=== PATIENT | female | born 1995 | race African-American/Black ===

== ENCOUNTER 2019-03-03 12:34 | Emergency (ER) | payer SELFPAY ==
--- NOTE | 2019-03-03 13:40 | ER Document Report ---
HPI - HPI Patient complains to provider of: Nasal congestion Time Seen by Provider: 03/03/19 13:34 Onset: Other - 3 To 4 days Onset/Duration: Persistent Quality of pain: No pain Pain Level: 1 Context: 23-year-old female with no past medical history presents emergency department with reports of sore throat a couple days ago but that is better. Now she complains of nasal congestion reports she is having trouble tasting. Reports she is hungry but not eating that much. Denies fever vomiting diarrhea. Denies pain with void. Reports she has tried some crug-slf-mkcjsge medications without relief of symptoms. Denies cough. Exacerbated by: Denies Relieved by: Denies Similar symptoms previously: No Recently seen / treated by doctor: No - RESPIRATORY Respiratory: REPORTS: Coughing Past Medical History - General Information source: Patient Last Menstrual Period: depo - Social History Smoking Status: Never Smoker Occupation: None Lives with: Alone Family History: Reviewed & Not Pertinent Patient has suicidal ideation: No Patient has homicidal ideation: No - Medical History Medical History: Negative Surgical Hx: Negative Vertical Provider Document - CONSTITUTIONAL Agree With Documented VS: Yes Exam Limitations: No Limitations General Appearance: WD/WN, No Apparent Distress - Nontoxic looking - INFECTION CONTROL TRAVEL OUTSIDE OF THE [place] IN LAST 30 DAYS: No - HEENT HEENT: Atraumatic, Normal ENT Exam, Normocephalic, PERRLA. negative: Conjuctival Injection, Pharyngeal Erythema, Tympanic Membrane Bulging - NECK Neck: Normal Inspection, Supple. negative: Lymphadenopathy-Left, Lymphadenopathy-Right - RESPIRATORY Respiratory: Breath Sounds Normal, No Respiratory Distress - CARDIOVASCULAR Cardiovascular: Regular Rate, Regular Rhythm - GI/ABDOMEN Gastrointestinal: Abdomen Soft, Abdomen Non-Tender - BACK Back: negative: CVA Tenderness-Right, CVA Tenderness-Left - MUSCULOSKELETAL/EXTREMETIES Musculoskeletal/Extremeties: XIOMY GUTIERREZ - NEURO Level of Consciousness: Awake, Alert, Appropriate Motor/Sensory: No Motor Deficit - DERM Integumentary: Warm, Dry, No Rash Course - Re-evaluation Re-evalutation: 03/03/19 13:45 Patient presents to the emergency department with what appears to be cold symptoms nasal congestion. She was instructed on pushing fluids monitor temperature take zgtv-gxo-btuvlfl decongestant. She was also instructed to return for fever concerns. She verbalized understanding to all instructions. - Vital Signs Vital signs: Temp Pulse Resp BP Pulse Ox 98.0 F 98 16 125/78 98 03/03/19 12:41 03/03/19 12:41 03/03/19 12:41 03/03/19 12:41 03/03/19 12:41 Discharge - Discharge Clinical Impression: Nasal congestion Condition: Stable Disposition: HOME, SELF-CARE Additional Instructions: *You have been evaluated for cold symptoms today, nasal congestion *Increase fluid intake as discussed *Take xaqz-whc-cfukmko decongestant *Monitor your temperature, take Tylenol as indicated *Follow up with a primary care provider within 1 week for recheck *Return to ED for worsening condition, changes, needs Referrals: MAGDI VALADEZ MD [ACTIVE STAFF] - Follow up as needed
[2019-03-03 13:46] VITALS: BP 122/74
== END 2019-03-03 13:38 | disposition home or self-care (01) ==
LOC: ER 12:34
DX: R09.81 Nasal congestion (principal); R06.00 Dyspnea, unspecified; R05 Cough; Z79.3 Long term (current) use of hormonal contraceptives
CPT/HCPCS: 99282

== ENCOUNTER 2019-09-12 14:33 | Emergency (ER) | payer SELFPAY ==
--- NOTE | 2019-09-12 15:25 | ER Document Report ---
ED Medical Screen (RME) - General Chief Complaint: Abdominal Pain Stated Complaint: ABDOMINAL PAIN/BLOATING/INSOMNIA Time Seen by Provider: 09/12/19 15:19 Mode of Arrival: Ambulatory Information source: Patient Notes: HPI; 24-year-old female presents to the emergency room complaining of worsening intermittent abdominal cramping and pain that has been ongoing for several months. Patient states she was seen for last year in [place] with no definite diagnosis. Denies fevers, no nausea, no vomiting. Does complain of bladder cramping after urinating. Not taking any medications for her symptoms. Also complaining of general fatigue and insomnia. PE: Alert and oriented x3. No acute distress noted. Lungs: Clear to auscultation without rales, rhonchi, wheezes. Heart: Regular rate rhythm without murmurs, rubs, gallops. No CVA tenderness noted bilaterally. Unable to do full abdominal exam in triage I have greeted and performed a rapid initial assessment of this patient. A comp rehensive ED assessment and evaluation of the patient, analysis of test results and completion of the medical decision making process will be conducted by additional ED providers. I have specifically instructed the patient or family members with the patient to immediately return to any nursing staff should anything change in the patient's condition or with their chief complaint. TRAVEL OUTSIDE OF THE [place] IN LAST 30 DAYS: No - Related Data Allergies/Adverse Reactions: No Known Allergies Allergy (Verified 09/12/19 15:18) Past Medical History - Social History Chew tobacco use (# tins/day): No Frequency of alcohol use: None Drug Abuse: None Physical Exam - Vital signs Vitals: Temp Pulse Resp BP Pulse Ox 99.1 F 88 16 115/60 98 09/12/19 14:52 09/12/19 14:52 09/12/19 14:52 09/12/19 14:52 09/12/19 14:52 Course - Vital Signs Vital signs: Temp Pulse Resp BP Pulse Ox 99.1 F 88 16 115/60 98 09/12/19 14:52 09/12/19 14:52 09/12/19 14:52 09/12/19 14:52 09/12/19 14:52
[2019-09-12 16:18] LABS: ABSOLUTE EOSINOPHILS # (AUTO) 0.1 10^3/uL (0.0-0.6); ABSOLUTE MONOCYTES (AUTO) 0.5 10^3/uL (0.1-1.4); TOTAL CELLS COUNTED % (AUTO) 100 %
[2019-09-12 16:21] LABS: APPEARANCE,URINE CLEAR; BILIRUBIN,URINE NEGATIVE (NEGATIVE); COLOR,URINE YELLOW; GLUCOSE, URINE NEGATIVE (NEGATIVE); KETONES,URINE NEGATIVE (NEGATIVE); LEUKOCYTE ESTERASE,URINE NEGATIVE (NEGATIVE); NITRITE,URINE NEGATIVE (NEGATIVE); PROTEIN,URINE NEGATIVE (NEGATIVE)
[2019-09-12 16:29] LABS: ABSOLUTE NEUT (AUTO) 2.5 10^3/uL (1.7-8.2); BASOPHILS % (AUTO) 0.5 % (0-2); EOSINOPHILS % (AUTO) 2.4 % (0-6); HEMATOCRIT 39.5 % (36.0-47.0); HEMOGLOBIN 13.4 g/dL (12.0-15.5); MEAN CORPUSCULAR HEMOGLOBIN 29.2 pg (27.0-33.4); MEAN CORPUSCULAR VOLUME 86 fl (80-97); MONOCYTES % (AUTO) 9.2 % (3-13); PLATELET COUNT 330 10^3/uL (150-450); RED BLOOD COUNT 4.61 10^6/uL (3.72-5.28); RED CELL DISTRIBUTION WIDTH 13.3 % (11.5-14.0); SEGMENTED NEUTROPHILS % (AUTO) 48.9 % (42-78); WHITE BLOOD COUNT 5.1 10^3/uL (4.0-10.5)
[2019-09-12 16:44] LABS: ALBUMIN 4.2 g/dL (3.5-5.0); ALKALINE PHOSPHATASE 83 U/L (38-126); ANION GAP 7 (5-19); ASPARTATE AMINO TRANSFERASE 21 U/L (14-36); BILIRUBIN,TOTAL 0.6 mg/dL (0.2-1.3); BLOOD UREA NITROGEN 11 mg/dL (7-20); CALCIUM 9.7 mg/dL (8.4-10.2); CARBON DIOXIDE 25 mmol/L (22-30); CHLORIDE 107 mmol/L (98-107); GLUCOSE 78 mg/dL (75-110); POTASSIUM 4.2 mmol/L (3.6-5.0); TOTAL PROTEIN 7.5 g/dL (6.3-8.2)
[2019-09-12 20:53] VITALS: BP 115/86
--- NOTE | 2019-09-13 00:21 | ER Document Report ---
Entered by MYRTLE MICHELLE SCRIBE 09/12/19 2030 Acting as scribe for:SIMÓN PLATA IV, MD ED GI/ - General Chief Complaint: Abdominal Pain Stated Complaint: ABDOMINAL PAIN/BLOATING/INSOMNIA Time Seen by Provider: 09/12/19 15:19 Primary Care Provider: SOLITARIO CARTER MD [HONORARY] - Follow up as needed Mode of Arrival: Ambulatory Information source: Patient Notes: This 24 year old female patient with no significant past medical history presents to the ED today with complaints of generalized abdominal pain that has been ongoing for the past x8 months. Patient states that the pain is intermittent, sharp in nature, and is worse before and after eating. She reports that she was seen in the past for her symptoms, but she didn't have a definite diagnosis. She also notes difficulty sleeping for the past couple weeks. She states that she recently started a new shift from 3-11 PM. Denies any other complaints. TRAVEL OUTSIDE OF THE [place] IN LAST 30 DAYS: No - Related Data Allergies/Adverse Reactions: No Known Allergies Allergy (Verified 09/12/19 15:18) Past Medical History - General Information source: Patient - Social History Smoking Status: Never Smoker Cigarette use (# per day): No Chew tobacco use (# tins/day): No Smoking Education Provided: No Frequency of alcohol use: None Drug Abuse: None Family History: Reviewed & Not Pertinent Patient has suicidal ideation: No Patient has homicidal ideation: No Review of Systems - Review of Systems Constitutional: See HPI, Other - Insomnia EENT: No symptoms reported Cardiovascular: No symptoms reported Respiratory: No symptoms reported Gastrointestinal: See HPI, Abdominal pain Genitourinary: No symptoms reported Female Genitourinary: No symptoms reported Musculoskeletal: No symptoms reported Skin: No symptoms reported Hematologic/Lymphatic: No symptoms reported Neurological/Psychological: No symptoms reported -: Yes All other systems reviewed and negative Physical Exam - Vital signs Vitals: Temp Pulse Resp BP Pulse Ox 99.1 F 88 16 115/60 98 09/12/19 14:52 09/12/19 14:52 09/12/19 14:52 09/12/19 14:52 09/12/19 14:52 Interpretation: Normal - General General appearance: Appears well, Alert In distress: None - HEENT Head: Normocephalic, Atraumatic Eyes: Normal Pupils: PERRL - Respiratory Respiratory status: No respiratory distress Chest status: Nontender Breath sounds: Normal Chest palpation: Normal - Cardiovascular Rhythm: Regular Heart sounds: Normal auscultation Murmur: No Friction rub: No Gallop: None auscultated - Abdominal Inspection: Normal Distension: No distension Bowel sounds: Normal Tenderness: Nontender - Abdomen soft Organomegaly: No organomegaly - Back Back: Normal, Nontender - Extremities General upper extremity: Normal inspection General lower extremity: Normal inspection - Neurological Neuro grossly intact: Yes Orientation: AAOx4 [place] Coma Scale Eye Opening: Spontaneous [place] Coma Scale Verbal: Oriented Robert Coma Scale Motor: Obeys Commands [place] Coma Scale Total: 15 - Psychological Associated symptoms: Normal affect, Normal mood - Skin Skin Temperature: Warm Skin Moisture: Dry Skin Color: Normal Course - Re-evaluation Re-evalutation: 09/12/19 20:30 Results of ED MSE discussed with patient. Patient states her abdominal symptoms have been going on in a waxing and waning manner for approximately 8 months. This MD has a low suspicion for an acute, emergent or emergency medical a bdominal situation. 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 Patient was encouraged to try either Benadryl or melatonin to help with her difficulty falling sleep after her 3-11 shift. Patient was also advised that this MD will be prescribing her omeprazole for her nonspecific abdominal complaints. All questions were answered prior to discharge. Emergency signs and symptoms, reasons to return to the emergency department discussed with patient. - Vital Signs Vital signs: Temp Pulse Resp BP Pulse Ox 98.4 F 79 16 115/86 H 100 09/12/19 20:51 09/12/19 20:51 09/12/19 20:51 09/12/19 20:51 09/12/19 20:51 - Laboratory Result Diagrams: 09/12/19 15:45 09/12/19 15:45 Laboratory results interpreted by me: 09/12/19 15:45 Urine Urobilinogen 4.0 H Urine Ascorbic Acid 40 H Discharge - Discharge Clinical Impression: Chronic generalized abdominal pain, Shifting sleep-work schedule, affecting sleep Condition: Stable Disposition: HOME, SELF-CARE Additional Instructions: Return to the Emergency Department without delay if any worse. You can use Benadryl or melatonin for sleep. Fill omeprazole prescribed to you and use as directed to hopefully help with your abdominal symptoms HOME CARE INSTRUCTIONS & INFORMATION: Thank you for choosing us for your medical needs. We hope you're satisfied with the care you received. After you leave, you must properly care for your problem and, at the same time, observe its progress. Any condition can change. Some illnesses can change rapidly over hours or days. If your condition worsens, return to the Emergency Department or see your physician promptly. ABOUT YOUR X-RAYS AND EKG'S: If you had an EKG or X-rays taken, they have been read by the Emergency Physician. The X-rays and EKG's will also be read by a Radiologist or Refinisher within 24 hours. If discrepancies are noted, you will be notified by telephone. Please be certain the ED has a correct telephone number & address where you can be reached. Also, realize that some fractures or abnormalities do not show up on initial X-rays. If your symptoms continue, see your physician. ABOUT YOUR LABORATORY TEST: If you had laboratory tests, the results have been reviewed by the Emergency Physician. Some test results (for example cultures) may not be available for several days. You will be contacted if any test result shows you need additional treatment. Please be certain the ED has a correct telephone number and address where you can be reached. ABOUT YOUR MEDICATIONS: You will receive instructions on how to take your medicine on the prescription label you receive. Additional information may be provided by the Pharmacy. If you have questions afterwards, call the ED for clarification or further instructions. Some prescribed medications may cause drowsiness. Do not perform tasks such as driving a car or operating machinery without consulting your Pharmacist. If you feel you need a refill of pain medication, your condition will need re-evaluation. Please do not call for a refill of any medication. ABOUT YOUR SIGNATURE: Signature of this document acknowledges to followin. Understanding that you received emergency treatment and that you may be released before al medical problems are known or treated. Please be certain the ED has a correct phone number & address where you can be reached. 2. Acknowledgement that you will arrange for follow-up care as recommended. 3. Authorization for the Emergency Physician to provide information to your follow-up Physician in order to maximize your care. AT ANY TIME, IF YOUR SYMPTOMS CHANGE SIGNIFICANTLY OR WORSEN OR YOU DEVELOP NEW SYMPTOMS, RETURN TO THE EMERGENCY DEPARTMENT IMMEDIATELY FOR RE-EVALUATION. OUR GOAL IS TO PROVIDE EXCELLENT MEDICAL CARE! WE HOPE THAT WE HAVE MET YOUR EXPECTATIONS DURING YOUR EMERGENCY DEPARTMENT VISIT AND THAT YOU FEEL YOU HAVE RECEIVED EXCELLENT CARE! Abdominal Pain There are many causes of abdominal pain. Pain can mean a serious problem requiring surgery (such as appendicitis). It can also be an innocent problem that goes away on its own (such as a viral infection). Often, time must pass to determine the cause of pain. The physician does not feel that hospitalization is necessary, at present. Things may change within the next 24 hours. Call the doctor or come back for re- examination if any problems occur, such as: (1) Pain that becomes more severe, steady, or becomes concentrated in one specific area. Also, pain that is more severe with movement or coughing. (2) Vomiting that persists or becomes more frequent. (3) Blood in the vomitus, urine, or bowel movements. Blood in the stool may have a tarry or black appearance. (4) Shaking chills or fever greater than 100 degrees F. (5) The abdomen becomes more distended or swollen. (6) Bowel movements cease. (7) Failure to improve as expected. Insomnia Everybody has trouble sleeping now and then. When it becomes a frequent problem, you must look for an underlying cause. Depression can interfere with sleep. Anxiety keeps people from falling asleep, while true depression causes fitful sleep and early awakening. If you think anxiety or depression might be your problem, your doctor can help. Many medicines can interfere with sleep. Try cutting back or eliminating caffeine. Watch out for "energizing" vitamins and herbs! Alcohol interferes powerfully with normal sleep. "Rebound insomnia" results when you stop taking sedating medicines like antihistamines, antianxiety medicine, or sleeping pills. Any medical problem that causes pain or bladder discomfort can interfere with sleep. Discuss any problem you have with your doctor. Get regular exercise. Have regular sleep times. Don't "sleep in." Avoid late afternoon naps. Sleeping pills may be temporarily helpful, but are never a long-term solution. Prescriptions: Omeprazole 40 mg PO DAILY #14 capsule.dr Forms: Return to Work Referrals: SOLITARIO CARTER MD [HONORARY] - Follow up as needed I personally performed the services described in the documentation, reviewed and edited the documentation which was dictated to the scribe in my presence, and it accurately records my words and actions.
== END 2019-09-12 20:53 | disposition home or self-care (01) ==
LOC: ER 14:33
DX: R10.84 Generalized abdominal pain (principal); G89.29 Other chronic pain; Z56.89 Other problems related to employment; G47.00 Insomnia, unspecified
CPT/HCPCS: 36415; 80053; 81001; 84703; 85025; 99284